=== PATIENT | female | born 1995 | race Caucasian/White ===

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

== ENCOUNTER 2017-03-20 00:10 | Outpatient (CLI) | payer OTHER ==
[2017-03-20] VITALS (8 sets, daily range): BP systolic 87–116; BP diastolic 48–58
[~2017-03-20 00:10] MED LIST: BENTYL10 MG PO; PEPCID20 MG PO
== END 2017-03-20 09:40 | disposition home or self-care (01) ==
LOC: LDRP-OP 00:10 → 2WEST 00:11 → LDRP-OP 04-27 13:44
DX: O47.1 False labor at or after 37 completed weeks of gestation (principal); Z3A.38 38 weeks gestation of pregnancy
CPT/HCPCS: 59025; G0378

== ENCOUNTER 2017-03-30 10:45 | Inpatient (IN) | payer OTHER ==
[2017-03-30] VITALS (19 sets, daily range): BP systolic 107–125; BP diastolic 57–77
[~2017-03-30] VITALS: Ht 175.3 cm; Wt 79.0 kg
[2017-03-30] MEDS ORDERED: PRENATAL TABLE1 EAC3 PO (11:22)
[2017-03-30 11:43] LABS: EOSINOPHIL (%) 0.4 % (0-5); HEMATOCRIT 33.3 % (36.0-46.0); IMMATURE GRANULOCYTE (%) 0.5 % (0.0-0.7); IMMATURE GRANULOCYTE COUNT 0.1 K/uL; INSTRUMENT ABS NEUTROPHIL CT 9.1 K/uL; LYMPHOCYTE COUNT 1.2 K/uL (1.0-2.8); MCH 30.6 PG (29.0-34.0); MCHC 34.2 G/DL (30.0-36.0); MCV 89.5 FL (83-99); MEAN PLAT.VOLUME 10.8 uM^3 (9.5-12.4); MONOCYTE (%) 7.3 % (3-12); MONOCYTE COUNT 0.8 K/uL (0-0.8); NEUTROPHIL (%) 80.8 % (45-76); NEUTROPHIL COUNT 9.1 K/uL (1.8-6.4); PLATELET COUNT 160 K/uL (156-360); RBC DIS.WIDTH-CV 12.6 % (11.8-14.6); RBC DIS.WIDTH-SD 41.2 % (39-53); RED BLOOD COUNT 3.72 M/uL (3.80-5.20); WHITE BLOOD COUNT 11.3 K/uL (4.1-10.2)
[2017-03-31] VITALS (11 sets, daily range): BP systolic 88–129; BP diastolic 44–89
[2017-03-31] MEDS ORDERED: IBUPROFEN800 MG PO (01:24)
[2017-04-01 07:28] VITALS: BP 97/54
[2017-04-01 07:33] LABS: EOSINOPHIL (%) 1.8 % (0-5); EOSINOPHIL COUNT 0.2 K/uL (0-0.3); HEMATOCRIT 29.1 % (36.0-46.0); IMMATURE GRANULOCYTE (%) 0.5 % (0.0-0.7); IMMATURE GRANULOCYTE COUNT 0.1 K/uL; INSTRUMENT ABS NEUTROPHIL CT 6.5 K/uL; LYMPHOCYTE COUNT 2.1 K/uL (1.0-2.8); MCH 30.3 PG (29.0-34.0); MCV 91.8 FL (83-99); MEAN PLAT.VOLUME 10.5 uM^3 (9.5-12.4); MONOCYTE (%) 7.2 % (3-12); MONOCYTE COUNT 0.7 K/uL (0-0.8); NEUTROPHIL (%) 68.2 % (45-76); NEUTROPHIL COUNT 6.5 K/uL (1.8-6.4); PLATELET COUNT 172 K/uL (156-360); RBC DIS.WIDTH-CV 12.6 % (11.8-14.6); RBC DIS.WIDTH-SD 42.2 % (39-53); RED BLOOD COUNT 3.17 M/uL (3.80-5.20); WHITE BLOOD COUNT 9.5 K/uL (4.1-10.2)
== END 2017-04-01 13:26 | disposition home or self-care (01) | DRG 775 ==
LOC: LDRP-OP 10:45 → 2WEST 10:46 → LDRP-OP 04-01 08:29 → 2WEST 04-01 13:26 → LDRP-OP 04-27 09:46
PROVIDERS: Obstetrics & Gynecology
DX: O71.4 Obstetric high vaginal laceration alone (principal); O99.824 Streptococcus B carrier state complicating childbirth; O99.344 Other mental disorders complicating childbirth; F32.9 Major depressive disorder, single episode, unspecified; F41.9 Anxiety disorder, unspecified; O99.52 Diseases of the respiratory system complicating childbirth; J45.909 Unspecified asthma, uncomplicated; Z37.0 Single live birth; Z3A.40 40 weeks gestation of pregnancy
CPT/HCPCS: 85025; C1755; G0378; J2405; J2540; J3010; J7120